=== PATIENT | female | born 1985 | race Caucasian/White ===

== ENCOUNTER 2019-06-25 13:43 | Outpatient (CLI) | payer OTHER, SELFPAY ==
--- NOTE | 2019-06-25 | ECHO_ITS ---
Patient Info Name: Theresa Gregory Age: 33 years : 1985 Gender: Female Ht: 64 in Wt: 165 lbs BSA: 1.86 m2 HR: 75 bpm BP: 134 / 83 mmHg Technical Quality: Good Exam Date: 06/25/2019 2:13 PM Exam Location: [facility] Patient Status: Outpatient Admit Date: 06/25/2019 Staff Ordering Physician: Mari Atkinson NP Supervisor Corduroy Cutting: Reynaldo Damon RDCS, RT Attending Provider: Mari Atkinson NP Referring Physician: China HUFF; Exam Type: CA echo doppler color flow Study Info Indications R06.09 - Other forms of dyspnea Complete two-dimensional, color flow and Doppler transthoracic echocardiogram is performed. Summary 1. Left ventricular chamber dimension is normal. 2. Left ventricular systolic function is normal, estimated at 60-65%. 3. The left ventricular diastolic function is normal. 4. E/e' 4 is not elevated. 5. Global longitudinal strain is normal at -20.1%. 6. There is trace pulmonic regurgitation. Left Ventricle E/e' 4 is not elevated. Global longitudinal strain is normal at -20.1%. Left ventricular chamber dimension is normal. Left ventricular systolic function is normal, estimated at 60-65%. The left ventricular diastolic function is normal. Right Ventricle Right ventricular chamber dimension is normal. Right ventricular systolic function is normal. Left Atria Left atrial chamber dimension is normal. Right Atria Right atrial chamber dimension is normal. Aortic Valve The aortic valve is trileaflet. There is no aortic valve stenosis. There is no aortic valve regurgitation. Pulmonic Valve There is trace pulmonic regurgitation. Mitral Valve There is no mitral valve stenosis. There is no mitral valve regurgitation. Tricuspid Valve There is no tricuspid valve regurgitation. Pericardium/Pleural There is no pericardial effusion. Inferior Vena Cava Normal inferior vena cava with >50% collapse upon inspiration consistent with normal right atrial pressure, 5 mmHg. Aorta The aortic root size at the sinus of Valsalva is normal. Left Ventricular Outflow Tract Name Value Normal LVOT 2D LVOT Diameter 2.2 cm LVOT Doppler LVOT Peak Gradient 3 mmHg LVOT Mean Gradient 2 mmHg LVOT VTI 21 cm LVOT VTI/AV VTI Ratio 0.8 LVOT Stroke Volume 83 ml LVOT CO 4.4 l/min LVOT CI 2.3 l/min/m2 Mitral Valve Name Value Normal MV Doppler MV Decel Stark 312 cm/s2 MV PHT 68 ms MV Area (PHT) 3.2 cm2 4.0-5.0 MV Diastolic Function M
--- NOTE | ~2019-06-25 | CT_ITS ---
EXAMINATION: CT abdomen wo con DATE: 06/25/2019 15:37 INDICATION: Right upper quadrant abdominal pain. TECHNIQUE: Computed tomography (CT) of the abdomen was performed without intravenous contrast. Automa era exposure control and iterative reconstruction technique were employed. The dose-length product wa s 434.06 mGy-cm. COMPARISON: CT abdomen 05/03/2015 FINDINGS: The visualized portions of the lung bases demonstrate mild atelectasis. No pleural effusion . The heart size is normal. No pericardial effusion. There is diffuse hepatic steatosis. The gallblad orestes, spleen, pancreas, adrenal glands, and kidneys are normal. There is no urolithiasis. There are no dilated loops of bowel. There are appendicoliths in the appendix, little of which is included. There are no pathologically enlarged lymph nodes. There is no free intraperitoneal fluid. There are chroni c bilateral L5 pars defects without spondylolisthesis. IMPRESSION: 1. Appendicoliths in the appendix, little of which is included. If there is clinical concern for acut e appendicitis, pelvis CT is recommended. 2. Diffuse hepatic steatosis. Reviewed, dictated and finalized at location A. SCOURING VAT TENDER IMPRESSION: 1. Appendicoliths in the appendix, little of which is included. If there is cli nical concern for acute appendicitis, pelvis CT is recommended. 2. Diffuse hepatic steatosis.
--- NOTE | 2019-07-01 12:32 | WPDHOLTEREM ---
Holter/Event Monitor Holter/Event Monitor Date of procedure: 06/25/19 Procedure Type: 24 hour holter monitor Indications: Dyspnea Conclusion: 1. 24 hour holter monitor on 06/25/19. 2. Underlying rhythm is sinus rhythm. HR range 45-120 bpm; average HR 78 bpm. 3. There are 2 premature supraventricular complexes. No supraventricular tachycardia. 4. There is 1 premature ventricular complex. No ventricular tachycardia. 5. No sinoatrial or atrioventricular blocks. No significant pauses greater than 2 seconds. 6. No symptoms available for correlation.
== END 2019-06-25 13:44 | disposition home or self-care (01) ==
PROVIDERS: PCP Family Medicine; Visit Provider Nurse Practitioner Family
DX: R06.09 Other forms of dyspnea (principal); R10.9 Unspecified abdominal pain; R06.02 Shortness of breath; K76.0 Fatty (change of) liver, not elsewhere classified
CPT/HCPCS: 74150; 93225; 93226; 93306

== ENCOUNTER → 2019-07-16 09:32 | Outpatient (CLI) | payer OTHER, SELFPAY ==
--- NOTE | ~2019-07-16 | CT_ITS ---
EXAMINATION: CT pelvis wo con EXAM DATE: 07/16/2019 09:49 INDICATION: Right lower quadrant pain. TECHNIQUE: Spiral CT pelvis wo con was performed without contrast. Axial, coronal and sagittal imag es were reviewed. The dose-length product (DLP) for this examination was 605.54 mGy-cm. The exposur e was tailored according to patient size (auto mA exposure control), and iterative reconstruction ( IR) was used as additional dose reduction technique. Comparison is made to prior examination from 09/18. FINDINGS: The appendix and visualized bowel is unremarkable. Uterus and ovaries are unremarkable. No pelvic lymphadenopathy. No inguinal, femoral or umbilical hernias. Chronic bilateral L5 spondylolysis . No spondylolisthesis. No acute pelvic findings. Bladder unremarkable. IMPRESSION: Unremarkable CT pelvis exam. Reviewed, dictated and finalized at location A. SPLANT NURSE
== END ==
PROVIDERS: Visit Provider Surgery
DX: R10.31 Right lower quadrant pain (principal)
CPT/HCPCS: 72192

== ENCOUNTER 2019-07-23 01:28 | Day surgery (SDC) | payer OTHER, SELFPAY ==
[2019-07-13 15:24] VITALS: BMI 29.9
[2019-07-23] VITALS (9 sets, daily range): BP systolic 105–124; BP diastolic 60–78; PULSE 55–88; RESP 16–20; TEMP 36.4–36.9; O2SAT 94–98
--- NOTE | 2019-07-23 07:44 | WPDHPUPDATE1 ---
History and Physical Update Update Date/Time: 07/23/19 07:44 History and Physical has been reviewed, including an updated exam of the patient. There are NO changes in the patient's condition. Risks, benefits, and alternatives have been discussed and questions answered. Patient agrees to proceed with procedure. The patient's pelvic CT showed a normal appendix. the appendicoliths seen on the abdominal CT on June 25 was no longer evident. I call the patient after her office visit. She continues to have right lower quadrant abdominal pain. She has had episodes like this in the past as well. As I explained in the office, she does not have acute appendicitis but may have chronic appendicitis. I did let her know that with the normal appendix on the 5th pelvic CT, there is certainly more of a chance that removing her appendix may not relieve this pain. However without appendectomy, it does not seem likely that we can exclude the possibility that the pain is from chronic appendicitis. The patient understands the risk of persistent right lower quadrant pain and agrees to proceed with laparoscopic appendectomy as planned. The procedure and the risks as well as the recovery have been discussed. She wishes to proceed.
[2019-07-23] MEDS: LACTATED RINGERS 1,000 ML 30 ML IV CONT ×2 (11:55→14:45)
--- NOTE | 2019-07-23 12:31 | PM.PROC ---
Procedure Note - Detailed Date of procedure: 07/23/19 Pre-op diagnosis: RLQ Pain/ Appendicolith Chronic appendicitis Post-op diagnosis: same Procedure performed: Laparoscopic appendectomy Description of procedure: The patient was taken to surgery and induced into general anesthesia. The abdomen was prepped and draped. Trocars were placed in the usual fashion using 0.5% Marcaine with epinephrine and applied Medical optical trocars. A 5 mm camera was used. The patient was placed in Trendelenburg with the right side elevated. The appendix was found and was elevated anteriorly. The appendix had a normal appearance. I did not see any sign of an appendicolith. There was a very bulky mesoappendix. Dissection was carried out in the mesoappendix. The mesoappendix was dissected and the appendiceal vessels cauterized for hemostasis. Eventually the base of the appendix was skeletonized. The appendix was ligated at its base with a Vicryl endo-loop. It was amputated just above the ligature and the mucosa of the appendiceal stump was cauterized. The appendix was immediately placed in an Endo-Catch bag and retrieved through the 10 11 left lower quadrant trocar site. We replaced the 10 11 trocar and reviewed the right lower quadrant and areas of dissection. All looked good with no evidence of bleeding or other problems. We evacuated CO2 and removed the trocar sleeves. Skin wounds were closed with subcuticular 4 O Monocryl skin suture. The wounds were dressed with Exofin surgical adhesive. The patient was awakened and taken to recovery in good condition. Sponge and needle counts were correct x2. Anesthesia: GETA and local (0.5% Marcaine with epinephrine) Surgeon: Gen Soto MD Human Capital Consultant: Anita CASTAÑEDA Estimated blood loss (mL): 5 Drains: No Packing: No Pathology: yes (Appendix) Complications: None Condition: stable Disposition: PACU Findings: Normal appearing appendix, no other findings to suggest etiology of right lower quadrant pain
--- NOTE | 2019-07-23 12:43 | WPDANESEPPF ---
Anes - Initial Pre Proc Eval Procedure: Operation Date: 07/23/19 13:30 Proposed Procedures p Laparoscopic Appendectomy - Gen Soto MD Date/Time: 07/23/19 12:43 Surgeon: Gen Soto MD Pre Op Diagnosis: RLQ Pain/ Appendicolith Patient Data Age: 34 Gender: F Height: 5 ft 5 in Weight: 93.5 kg Last Vital Signs Temp 36.9 C 07/23/19 12:31 Pulse 69 07/23/19 12:31 Resp 16 07/23/19 12:31 BP 116/78 07/23/19 12:31 Pulse Ox 98 07/23/19 12:31 Allergies Allergy/AdvReac Type Severity Reaction Status Date / Time iodine Allergy Severe Anaphylaxis Verified 07/23/19 11:36 IV CONTRAST Allergy Severe ANAPHALATIC Uncoded 07/13/19 15:25 REACTION. Home Medications Medication Instructions Recorded Confirmed Type fexofenadine-pseudoephedrine 1 tablet PO DAILY PRN 05/02/19 07/23/19 History [Deepika-D 12 Hour] multivitamin 1 tablet PO DAILY 07/13/19 07/23/19 History hydrocodone-acetaminophen 1 - 2 tablet PO Q6H PRN #7 tablet 07/23/19 Rx ketorolac 10 mg PO Q6H 4 Days #16 tablet 07/23/19 Rx Patient hx anesthesia problems: none Family hx anesthesia problems: none PMFSH Past Medical History Medical History History of asthma Seasonal allergies Surgical History Surgical History History of knee surgery both knees first was 9 years, most recent was 3 years ago History of removal of cyst Family History Family History Father Hypertension History of blood clots Sibling Hypertension Social History Social History Smoking status: Never smoker Alcohol intake: current Substance use: never Gender identity (if verbalized by the patient): Female Anes - Eval Final PreProcedure Day of Procedure 07/23/19 12:43 Patient weight: obese Heart: regular rate and rhythm Lungs: clear to auscultation Airway: Mallampati scale class II Neurological: alert and oriented Last oral intake: >/= 8 hours ASA classification: II Emergent: no Anesthetic plan: proceed Anesthesia type and monitoring: general ETT and standard monitoring Informed Consent: The patient's anesthetic plan and its attendant risks and benefits were discussed with the patient/family/POA. Questions were solicited and answers provided to the satisfaction of the patient/family/POA.
[2019-07-23] MEDS: ceFAZolin 2 GM/D5W 50 ML 2 GM/50 ML BAG IVPB (13:42)
[2019-07-23] MEDS: KETOROLAC 30 MG/ML VIAL (*BKC) IV PUSH (13:55)
== END 2019-07-23 17:18 | disposition home or self-care (01) ==
PROVIDERS: PCP Family Medicine; Visit Provider Surgery
PROC: 0DTJ4ZZ Resection of Appendix, Percutaneous Endoscopic Approach (ICD-10-PCS; CPT 44970; principal; 2019-07-23 13:30)
DX: K36 Other appendicitis (principal); E66.9 Obesity, unspecified; Z68.34 Body mass index [BMI] 34.0-34.9, adult
CPT/HCPCS: 44970; 88304; A9270; J0131; J0690; J1100; J1885; J2250; J2405; J2704; J3010; J7120

== ENCOUNTER 2019-12-09 15:39 | Emergency (ER) | payer OTHER, SELFPAY ==
--- NOTE | ~2019-12-09 | XR_ITS ---
EXAMINATION: XR ankle LT min 3V DATE: 12/09/2019 16:31 INDICATION: Left ankle pain. Injury. TECHNIQUE: 4 views of left ankle were obtained. COMPARISON: None. FINDINGS: Bone alignment is normal. No fracture. Joint spaces are well maintained. There is ankle sof t tissue swelling. IMPRESSION: 1. No fracture. Reviewed, dictated and finalized at location A. IMPRESSION: 1. No fracture.
[2019-12-09 16:02] VITALS: BP 149/69; PULSE 59; RESP 16; TEMP 36.2; O2SAT 99
--- NOTE | 2019-12-09 16:16 | ED.LOWEXIN ---
HPI - Extremity Injury (Lower) General Chief Complaint: Extremity Injury, Lower Stated Complaint: left ankle injury Time Seen by Provider: 12/09/19 16:17 Source: patient and RN notes reviewed Mode of arrival: ambulatory Limitations: no limitations History of Present Illness HPI Narrative: This is a 34 years old female presents to the office for an evaluation of ankle injury for four to five days. She accidentally kicked a boat motor very hard that it breaks her skin. She thought it was just a little abrasion so she brushed it off. She noticed immediate swelling after injury however she has not been caring for it like she supposes to. She has been taking ibuprofen for pain. TD is up to date. Related Data Allergies Allergy/AdvReac Type Severity Reaction Status Date / Time iodine Allergy Severe Anaphylaxis Verified 08/07/19 08:12 IV CONTRAST Allergy Severe ANAPHALATIC Uncoded 07/13/19 15:25 REACTION. Review of Systems Review of Systems: Narrative: CONSTITUTIONAL: Denies fever, chills CARDIOVASCULAR: Denies chest pain, palpitation RESPIRATORY: Denies dyspnea, wheezing, cough GASTROINTESTINAL: Denies abdominal pain, nausea, vomiting SKIN: Reports scab from skin abrasion on her left ankle MUSCULOSKELETAL: Reports left ankle pain with swelling NEUROLOGIC: Denies lightheaded All other systems reviewed are negative, except as documented in HPI. PMFSH Past Medical History Medical History History of asthma Seasonal allergies Surgical History Surgical History History of knee surgery both knees first was 9 years, most recent was 3 years ago History of removal of cyst Family History Family History Father Hypertension History of blood clots Sibling Hypertension Social History Social History Smoking status: Never smoker Alcohol intake: current Substance use: never Gender identity (if verbalized by the patient): Female Comments At time of signature, I agree with nursing past medical, surgical, social and family history. There is no relevant family history pertinent to the presenting complaint. Exam Narrative: Exam Narrative: GENERAL: This is a well-nourished, well-developed patient, in no apparent distress. CARDIOVASCULAR: Regular rate and rhythm without murmurs, gallops, or rubs. RESPIRATORY: Clear to auscultation. Breath sounds equal bilaterally. No wheezes, rales, or rhonchi. GASTROINTESTINAL: Abdomen soft, non-tender, nondistended. Bowel sounds are active. No hepato-splenomegaly, or palpable masses. No guarding. NEURO: awake, alert, and oriented to person, place and time. There were no obvious focal neurologic abnormalities. EXTREMITIES: Right foot/ankle intact. Left ankle is swollen and tender over the medial aspect; heal skin abrasion noted without pustular, erythema or warmth to palpation. There is no ligamentous instability. There is no deformity. The foot and toes are warm and well-perfused. Sensation to pain and light touch is intact. Course Vital Signs Vital signs: Vital Signs Temperature 97.2 F L 12/09/19 16:02 Pulse Rate 59 L 12/09/19 16:02 Respiratory Rate 16 12/09/19 16:02 Blood Pressure 149/69 H 12/09/19 16:02 Pulse Oximetry 99 12/09/19 16:02 Temperature 97.2 F L 12/09/19 16:02 Pulse Rate 59 L 12/09/19 16:02 Respiratory Rate 16 12/09/19 16:02 Blood Pressure 149/69 H 12/09/19 16:02 Pulse Oximetry 99 12/09/19 16:02 MDM - Extremity Injury (Lower) MDM Narrative Medical decision making narrative: Discharge instructions reviewed with patient, as well as provided in writing per nursing staff. The instructions also include specific and strict return/GO TO THE ER as well as f/u information. All questions have been answered, and the patient d
== END 2019-12-09 17:02 | disposition home or self-care (01) ==
PROVIDERS: Emergency Provider Nurse Practitioner; PCP Family Medicine
DX: S91.002A Unspecified open wound, left ankle, initial encounter (principal); L08.9 Local infection of the skin and subcutaneous tissue, unspecified; W22.8XXA Striking against or struck by other objects, initial encounter; J45.909 Unspecified asthma, uncomplicated
CPT/HCPCS: 73610; 99213; G0463

== ENCOUNTER → 2021-04-04 12:51 | Outpatient (CLI) | payer BC, SELFPAY ==
--- NOTE | ~2021-04-04 | US_ITS ---
EXAMINATION: US abdomen complete DATE: 04/04/2021 13:23 INDICATION: Right upper quadrant abdominal pain. TECHNIQUE: Multiple grayscale and Doppler ultrasound images of the abdomen were obtained. COMPARISON: CT abdomen 06/25/2019, abdomen and pelvis 09/18/2010 FINDINGS: The visualized portions of the head and body of the pancreas are normal. There is diffuse h epatic steatosis. In the right hepatic lobe, there is a 3.8 x 2.4 cm hypoechoic hypervascular mass co rrelating with a hypervascular mass seen by CT on 09/18/2010, likely a benign lesion such as focal nodu lar hyperplasia. There is normal flow in main portal vein. The gallbladder is normal in size. No gall stones or gallbladder wall thickening. There was no sonographic Damon sign. The common duct is tima l and measures 5 mm. The kidneys are normal in size. The spleen is normal in size. Abdominal aorta is normal in caliber. The inferior vena cava is normal. IMPRESSION: 1. Diffuse hepatic steatosis. Reviewed, dictated and finalized at location B. EMS ARCHITECT
== END ==
PROVIDERS: PCP Family Medicine; Visit Provider Nurse Practitioner Family
DX: K76.0 Fatty (change of) liver, not elsewhere classified (principal); R10.11 Right upper quadrant pain
CPT/HCPCS: 76700

== ENCOUNTER 2023-01-09 11:11 | Emergency (ER) | payer BC, SELFPAY ==
--- NOTE | 2023-01-09 11:18 | ED.URI ---
HPI - URI/Sore Throat General Chief Complaint: Upper Respiratory Infection Stated Complaint: COUGH/SOB/DRAINAGE/HEADACHE Time Seen by Provider: 01/09/23 11:18 Source: patient and RN notes reviewed History of Present Illness HPI Narrative: Patient is a 37-year-old female presents to urgent care with complaints of cough, shortness of breath, headache and drainage. Patient states that she took a negative COVID test at home today. States that symptoms started approximately 3 or 4 days ago. Patient denies any fever, sore throat, nausea or vomiting. States that she is concerned due to having a 90-lpaqc-des at home. No other acute complaints. No acute distress noted. Patient aware of the plan of care. Some parts of this dictation were generated by voice recognition software and may contain typographical and/or grammatical inaccuracies. Related Data Allergies Allergy/AdvReac Type Severity Reaction Status Date / Time iodine Allergy Severe Anaphylaxis Verified 01/09/23 11:40 IV CONTRAST Allergy Severe ANAPHALATIC Uncoded 01/09/23 11:40 REACTION. Review of Systems Review of Systems: CONSTITUTIONAL: Denies fever, chills, or sweats. EYES: Denies visual changes, redness, or discharge. ENT: Denies rhinorrhea, congestion, sore throat, or otalgia. Reports postnasal drainage CARDIOVASCULAR: Denies chest pain, palpitations, or edema. RESPIRATORY: Reports of cough, nonproductive GASTROINTESTINAL: Denies abdominal pain, nausea, vomiting, or diarrhea. GENITOURINARY: Denies dysuria or hematuria. SKIN: Denies rash or itching. MUSCULOSKELETAL: Denies back pain, joint pain, or myalgia. NEUROLOGIC: D reports of headache All other systems reviewed are negative, except as documented in HPI. [facility] Past Medical History Medical History BMI 31.0-31.9,adult History of asthma Seasonal allergies Surgical History Surgical History History of D&C History of knee surgery both knees first was 9 years, most recent was 3 years ago History of removal of cyst Family History Family History Father Hypertension History of blood clots Sibling Hypertension Social History Social History Smoking status: Never smoker Alcohol intake: current Substance use: never Living arrangements: alone Occupation/Education: occupation Gender identity (if verbalized by the patient): Female Comments At the time of my signature, I reviewed and agree with the nursing past medical, surgical, social, and family history. There is no relevant family history pertinent to the patient complaint. Exam Narrative: GENERAL: This is a well-nourished, well-developed patient, in no apparent distress. HEAD: normocephalic, atraumatic. EYES: PERRL. Sclera clear/white. Vision is grossly intact. EARS: External ears normal, auditory canals clear and without drainage, TMs normal without perforation. Hearing grossly intact. NOSE: External nose normal with no obvious nasal discharge, nares without redness, no rhinorrhea. THROAT: Mucous membranes moist, moderate postnasal drainage without exudate, ulceration or tonsillar edema NECK: Neck supple, non-tender without lymphadenopathy CARDIOVASCULAR: Regular rate and rhythm RESPIRATORY: Scant expiratory wheezes throughout. Persistent dry cough noted on exam SKIN: warm, intact with no suspicious lesions or rash, good texture and turgor. NEURO: awake, alert, and oriented to person, place and time. There were no obvious focal neurologic abnormalities. EXTREMITIES: No clubbing, cyanosis, or edema. Course Course Level of Care: Express Care Visit Vital Signs Vital signs: Vital Signs Temperature 97.5 F L 01/09/23 11:26 Pulse Rate 81 01/09/23 11:26 Respiratory Rate 16 01/09/23 11:26 Blood
[2023-01-09 11:26] VITALS: BP 131/95; PULSE 81; RESP 16; TEMP 36.4; O2SAT 99
== END 2023-01-09 11:49 | disposition home or self-care (01) ==
PROVIDERS: Emergency Provider Nurse Practitioner Family; PCP Family Medicine
DX: J40 Bronchitis, not specified as acute or chronic (principal); J45.909 Unspecified asthma, uncomplicated
CPT/HCPCS: 87804; 99213; G0463

== ENCOUNTER 2023-10-27 08:56 | Emergency (ER) | payer BC, SELFPAY ==
--- NOTE | ~2023-10-27 | US_ITS ---
EXAMINATION: US abdomen limited DATE: 10/27/2023 10:20 INDICATION: Right upper quadrant abdominal pain TECHNIQUE: Multiple grayscale and Doppler ultrasound images of the abdomen were obtained. COMPARISON: 04/04/2021 FINDINGS: Pancreas is normal. Visualized proximal to mid abdominal aorta and inferior vena cava are normal. Karen er has normal contour, with a smooth surface. There is increased parenchymal echogenicity and coarsen ed echotexture consistent with diffuse hepatic steatosis. No liver lesion identified. No intrahepati c biliary duct dilation suspected. Portal venous flow was seen in the hepatopetal, normal direction a nd has normal Doppler waveform. The gallbladder is normal in appearance. There is no cholelithiasis. The common bile duct measures 2 mm, which is normal. Sonographic Damon sign was reported as negativ e by the marble machine operator.Visualized portion of the right kidney demonstrates normal contour and echogenic ity with no hydronephrosis. IMPRESSION: 1. Diffuse hepatic steatosis. Otherwise normal right upper quadrant ultrasound. Reviewed, dictated and finalized at location A.
--- NOTE | ~2023-10-27 | CT_ITS ---
EXAMINATION: CT abdomen pelvis wo con DATE: 10/27/2023 11:02 INDICATION: Right upper quadrant pain and hematuria TECHNIQUE: Computed tomography (CT) of the abdomen and pelvis was performed without intravenous contr ast. Automated exposure control and iterative reconstruction technique were employed. The dose-length product was 770.49 mGy-cm. COMPARISON: CT dated 06/25/2019, 07/16/2019 and 09/18/2010 and ultrasound dated 06/04/2020 FINDINGS: Mild discoid atelectasis in the lingula and right middle lobe. Arch size is normal. No pericardial or pleural effusion. 2.4 x 0.9 cm low-attenuation subcapsular lesion along the lateral right hepatic lo be which appears to correspond to a hypoechoic mass on prior ultrasound with enhancement on CT dated 09/18/2010 most likely representing either benign hemangioma, hepatic adenoma or focal nodular hyperpla [place]. Gallbladder, spleen, pancreas and bilateral adrenal glands are normal. Kidneys and ureters are n ormal with no urolithiasis, hydroureteronephrosis or perinephric/ureteral stranding. 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 Bladder, anteverted uterus and bilateral adnexa are unrema rkable. Tampon within the vaginal vault. Bowels including appendix are normal. No free intraperitonea l gas or fluid. No pathologically enlarged abdominal or pelvic lymphadenopathy. L5 spondylolysis with chronic bilateral pars interarticularis defects without spondylolisthesis. IMPRESSION: 1. Normal gallbladder and appendix. No urolithiasis or acute intra-abdominal/pelvic process. Reviewed, dictated and finalized at location A. IMPRESSION: 1. Normal gallbladder and appendix. No urolithiasis or acute intra-abdominal/pe lvic process.
[2023-10-27 09:03] VITALS: BP 127/84; PULSE 86; RESP 16; TEMP 36.9; O2SAT 99
--- NOTE | 2023-10-27 09:21 | ED.ABDPAIN ---
HPI - Abdominal Pain General Chief Complaint: Abdominal Pain Stated Complaint: abdominal pain Time Seen by Provider: 10/27/23 09:00 History of Present Illness HPI narrative: 38-year-old female presented to the emergency department for evaluation for upper quadrant pain and associated diarrhea. Patient reports symptoms started approximately 2 weeks ago and patient was having intermittent episodes of diarrhea out with right upper quadrant pain. Patient states that her diarrhea began to improve but unfortunately her right upper quadrant pain began to radiate to her back. Patient states she does suspect she has issues with her gallbladder but has no prior diagnosis of cholelithiasis. Patient declined any medications for pain control for nausea control. Related Data Allergies Allergy/AdvReac Type Severity Reaction Status Date / Time iodine Allergy Severe Anaphylaxis Verified 10/27/23 08:56 IV CONTRAST Allergy Severe ANAPHALATIC Uncoded 10/27/23 08:56 REACTION. Review of Systems Review of Systems: All systems reviewed & are unremarkable except as noted in HPI and below PMFSH Past Medical History Medical History BMI 31.0-31.9,adult BMI 34.0-34.9,adult History of asthma Seasonal allergies Surgical History Surgical History History of History of D&C History of knee surgery both knees first was 9 years, most recent was 3 years ago History of removal of cyst Family History Family History Father Hypertension History of blood clots Sibling Hypertension Mother No problems noted. Social History Social History Smoking status: Never smoker Second hand tobacco smoke exposure: No Alcohol intake: current Substance use: never Substance use type: does not use Do You Feel Safe in your Home?: Yes Lack of Transportation: No Lack of Food: Never True Current Housing: I Have Housing Concerned About Future Housing: No Difficulty Paying Gas/Electric Bills: No Difficulty Paying for Meds: No Currently Unemployed: No Education: Bachelor's Degree Difficulty w/ Childcare or Family Care: No Living arrangements: with family Occupation/Education: occupation Additional occupation/education comments: [employer]. Gender identity (if verbalized by the patient): Female Exam Narrative: APPEARANCE: Well appearing, no pain, no distress, well-nourished. HEAD: normocephalic, atraumatic. EYES: PERRLA/EOMI, conjunctivae clear. NOSE: Normal no drainage EARS:TMS clear with good light reflex. THROAT: Pharynx clear, no exudate. NECK: Supple. No adenopathy, no masses. RESPIRATORY: Airway patent, respirations nonlabored. Clear to auscultation bilaterally, no rales, rhonchi, wheezing. CARDIOVASCULAR: Regular rate and rhythm without murmurs rubs or gallops. ABDOMINAL: Right upper quadrant tenderness to palpation MUSCULOSKELETAL: Moves all extremities. Strength/ROM intact, No edema, No calf tenderness. NEURO: Alert. Cranial nerves II through XII intact. Good gait. Good coordination SKIN: Warm, dry. Normal Color Course Vital Signs Vital signs: Vital Signs Temperature 98.4 F 10/27/23 09:03 Pulse Rate 86 10/27/23 09:03 Respiratory Rate 16 10/27/23 09:03 Blood Pressure 127/84 10/27/23 09:03 Pulse Oximetry 99 10/27/23 09:03 Temperature 98.4 F 10/27/23 09:03 Pulse Rate 77 10/27/23 11:48 Respiratory Rate 16 10/27/23 11:48 Blood Pressure 118/85 10/27/23 11:48 Pulse Oximetry 99 10/27/23 11:48 MDM - Abdominal Pain MDM Narrative Medical decision making narrative: 38-year-old female presenting to the emergency department for evaluation for right upper quadrant and right CVA tenderness. Patient is afebrile with no leukocytosis and a st
[2023-10-27 09:37] LABS: Basophils Absolute Auto 0.1 K/mm3 (0.0-0.1); Basophils Percent Auto 1.1 % (0.2-1.2); Eosinophils Absolute Auto 0.3 K/mm3 (0-0.3); Eosinophils Percent Auto 4.7 % (0-4.4); Hematocrit 41.3 % (37.0-47.0); Hemoglobin 13.6 g/dL (12.0-15.0); Immature Granulocyte Absolute 0.01 K/mm3 (0.00-0.031); Immature Granulocyte Percent A 0.2 % (0-0.5); Lymphocytes Percent Auto 50.6 % (18.3-44.2); Mean Corpuscular HGB Conc 32.9 g/dl (32-36); Mean Corpuscular Hemoglobin 31.6 pg (26-34); Mean Corpuscular Volume 95.8 fl (80-100); Mean Platelet Volume 8.9 fl (7.4-10.4); Monocytes Absolute Auto 0.3 K/mm3 (0.1-0.6); Monocytes Percent Auto 6.4 % (2.6-8.5); Platelet Count Result 295 k/mm3 (150-375); Red Blood Count 4.31 M/mm3 (4.2-5.4); Red Cell Distribution Width 12.4 % (11.5-14.5); White Blood Count 5.3 K/mm3 (4.5-10.0)
[2023-10-27 09:43] LABS: Appearance Urine Clear (Clear); Bacteria Urine Rare /hpf; Bilirubin Urine Negative (Negative); Blood Urine 2+ (Negative); Color Urine Yellow (Yellow); Glucose Urine UA Negative (Negative); Ketones Urine Negative (Negative); Leukocyte Esterase Ur Negative LEU/UL (Negative); Nitrate Urine Negative (Negative); Non Pathogenic Casts 0-2; Protein Urine Negative (Negative); Specific Grav Ur 1.016 (1.001-1.035); Squamous Epithelial Cell Urine None Seen /hpf (Few); Urobilinogen Urine 0.2 mg/dL (<2.0); WBC Urine 0-5 /hpf (0-3)
[2023-10-27 09:44] LABS: Add Urine Microscopic? YES
[2023-10-27 09:45] LABS: Alanine Aminotransferase 17 U/L (6-35); Albumin Level 4.6 g/dL (3.5-5.1); Alkaline Phosphatase 66 U/L (38-126); Anion Gap 13 mmol/L (4-12); Aspartate Amino Transferase 22 U/L (14-36); Bilirubin,Total 0.3 mg/dL (0.2-1.3); Blood Urea Nitrogen 11 mg/dL (7-17); Calcium 8.7 mg/dL (8.4-10.2); Carbon Dioxide 18 mmol/L (22-30); Chloride 113 mmol/L (98-107); Estimated CRCL calculation 77 ml/min; Estimated Glomerular Filt Rate > 60; Glucose 105 mg/dL (65-110); Lactic Acid Reflex 1.5 mmol/L (0.7-2.0); Lipase 166 U/L (23-300); Potassium 3.7 mmol/L (3.4-5.0); Sodium 144 mmol/L (137-145)
[2023-10-27 10:03] LABS: Prothrombin Time 13.4 Seconds (11.1-14.7)
[2023-10-27 10:04] LABS: Partial Thromboplastin Time 27.5 Seconds (22.3-36.8)
[2023-10-27] MEDS: SODIUM CHLORIDE 0.9% IV 1,000 ML 999 ML IV CONT (11:08)
[2023-10-27 11:48] VITALS: BP 118/85; PULSE 77; RESP 16; O2SAT 99
== END 2023-10-27 11:49 | disposition home or self-care (01) ==
PROVIDERS: Emergency Provider Emergency Medicine; PCP Family Medicine
DX: R10.11 Right upper quadrant pain (principal)
CPT/HCPCS: 36415; 74176; 76705; 80053; 81001; 81025; 83605; 83690; 85025; 85610; 85730; 99284; J7030